=== PATIENT | male | born 1990 | race Asian ===

== ENCOUNTER 2025-03-23 21:07 | Emergency (ER) | payer OTHER ==
[~2025-03-23] VITALS: Ht 172.7 cm; Wt 76.0 kg
[2025-03-23 21:18] VITALS: O2SAT 98
[2025-03-23 22:43] LABS: HEMATOCRIT. 46.6 % (42.0-52.0); HEMOGLOBIN. 15.9 g/dL (14.0-18.0); MEAN PLATELET VOLUME 8.3 fl (7.4-10.4); PLATELET 251 x1000/uL (130-400); RED BLOOD CELL COUNT 5.31 mill/uL (4.7-6.1); RED CELL DISTRIBUTION WIDTH 12.5 % (11.6-14.6)
[2025-03-23 22:51] LABS: INR 1.0
[2025-03-23 22:58] LABS: CREATININE 1.1 mg/dL (0.6-1.3); UREA NITROGEN BLOOD 16 mg/dL (9-23)
[2025-03-23 22:59] LABS: ETHANOL BLOOD < 10 mg/dL (<10)
[2025-03-23 23:00] LABS: ASPARTATE AMINOTRANSFERASE 28 IU/L (<34); BILIRUBIN DIRECT 0.4 mg/dL (<=3.0)
[2025-03-23 23:01] LABS: BILIRUBIN TOTAL 1.7 mg/dL (0.1-1.0); PROTEIN TOTAL 7.6 g/dL (6.0-8.3)
[2025-03-23] MEDS: ONDANSETRON HCL 4MG/2ML INJ IV ONE (23:19)
[2025-03-23] MEDS: PANTOPRAZOLE SODIUM 40 MG/VIAL IV ONE (23:19)
[2025-03-23] MEDS: KETOROLAC 15MG/ML VIAL IV ONE (23:19)
[2025-03-23] MEDS: SODIUM CHLORIDE 0.9% 1,000 ML IV ONE (23:19)
[2025-03-23] MEDS: ONDANSETRON 4MG ODT PO ONE (23:20)
[2025-03-23 23:21] LABS: LYMPHOCYTES % MANUAL 3.0 % (20.0-50.0); MONOCYTES % MANUAL 6.0 % (2.0-8.0); NEUTROPHILS % MANUAL 91.0 % (45.0-75.0); PLATELET ESTIMATE NORMAL
[2025-03-24] MEDS ORDERED: ONDA4TAB50 MT (00:30)
[2025-03-24] MEDS: POTASSIUM CHLORIDE 20MEQ TABLET SR PO SCH (01:28)
[2025-03-24 01:31] VITALS: BP 133/71; PULSE 55; RESP 15; TEMP 36.8; O2SAT 100
== END 2025-03-24 01:37 | disposition home or self-care (01) ==
LOC: ER 21:07
DX: K52.9 Noninfective gastroenteritis and colitis, unspecified (principal)
CPT/HCPCS: 80076; 80048; 80320; 83690; 85025; 85610; 36415; 96361; 96374; 96375; 99284; J1885; J2405; J2470; J7030; G0480